=== PATIENT | female | born 2000 | race American Indian/Alaskan Native ===

== ENCOUNTER 2019-07-16 00:29 | Emergency (ER) | payer OTHER, BC ==
[2019-07-16 01:09] VITALS: BMI 21.7
--- NOTE | 2019-07-16 01:28 | PDOC ---
History of Present Illness - General Chief Complaint: Injury Stated Complaint: LEFT FOOT PAIN,FALL History Source: Patient Exam Limitations: No Limitations - History of Present Illness Initial Comments: 07/16/19 01:20 Patient is a 19-year-old female with no past medical history here with complaints of left foot and ankle pain since a few hours ago. Patient states that she was walking and fell into a pothole, fell, causing injury to her foot and ankle now with inability to apply pressure on the foot. Pain she states it is 10/10 with ambulation but if sitting still has no pain. There was no other injury with the fall. PMD: Dr. Rosales PMHX: neg PSOCHX: neg etoh, neg drug, neg cig ALL: NKDA GENERAL/CONSTITUTIONAL: [No fever or chills. No weakness. No weight change.] HEAD, EYES, EARS, NOSE AND THROAT: [No change in vision. No ear pain or discharge. No sore throat.] RESPIRATORY: [No cough, wheezing, or hemoptysis.] MUSCULOSKELETAL: [(+) joint or muscle swelling or pain. No neck or back pain.] SKIN AND BREASTS: [No rash or easy bruising.] NEUROLOGIC: [No headache, vertigo, loss of consciousness, or loss of sensation.] ALLERGIC/IMMUNOLOGIC: [No hives or skin allergy. No latex allergy.] GENERAL: [The patient is awake, alert, and fully oriented, in no acute distress. ] HEAD: [Normal with no signs of trauma.] EYES: [Pupils equal, round and reactive to light, extraocular movements intact, sclera anicteric, conjunctiva clear.] EXTREMITIES: [Normal range of motion, (+)swelling to the left foot latteral and ankle (+) tenderness most over the 5th MT. No clubbing or cyanosis. No cords, erythema, or tenderness.] NEUROLOGICAL: [Cranial nerves II through XII grossly intact. Normal speech, nonambulatary due to pain.] SKIN: [Warm, Dry, normal turgor, no rashes or lesions noted, (+) swelling to the left foot.] Past History - Past Medical History Allergies/Adverse Reactions: Allergies Allergy/AdvReac Type Severity Reaction Status Date / Time No Known Allergies Allergy Verified 07/16/19 00:43 Home Medications: Ambulatory Orders NK [No Known Home Medication] 07/16/19 COPD: No - Immunization History Immunization Up to Date: Yes - Psycho Social/Smoking Cessation Hx Smoking History: Never smoked Information on smoking cessation initiated: No Hx Alcohol Use: No Drug/Substance Use Hx: No *Physical Exam - Vital Signs Last Vital Signs Temp Pulse Resp BP Pulse Ox 98.6 F 97 H 15 103/70 99 07/16/19 00:31 07/16/19 00:31 07/16/19 00:31 07/16/19 00:31 07/16/19 00:31 Procedures - Splinting Splint Location: Right: Foot Hand-Made Type: orthoglass Splint Type: Yes: Posterior, Short Leg Post-Proc Neuro Vasc Exam: normal Armando Bandage: 6" Complications: No ED Treatment Course - RADIOLOGY Radiology Studies Ordered: Category Date Time Status ANKLE & FOOT-LEFT* [RAD] Stat Radiology 07/16/19 01:16 Ordered Medical Decision Making - Medical Decision Making 07/16/19 01:20 Patient is a 19-year-old female with no past medical history here with complaints of left foot and ankle pain since a few hours ago. Patient states that she was walking and fell into a pothole, fell, causing injury to her foot and ankle now with inability to apply pressure on the foot. Pain she states it is 10/10 with ambulation but if sitting still has no pain. There was no other injury with the fall. 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 07/16/19 02:48 At the verge of discharge patient c/o of the right foot in pain from the injury xray of right foot order, no fx noted. I discussed the physical exam findings, ancillary test results and final diagnoses with the patient. I answered all of the patient's questions. The patient was satisfied with the care received and felt comfortable with the discharge plan and treatment plan. The Patient agrees to follow up with the primary care physician within 24-72 hours. Discharge - Discharge Information Problems reviewed: Yes Clinical Impression/Diagnosis: Fracture of base of fifth metatarsal bone Qualifiers: Encounter type: initial encounter Fracture type: closed Laterality: left Qualified Code(s): S92.352A - Displaced fracture of fifth metatarsal bone, left foot, initial encounter for closed fracture Condition: Stable Disposition: HOME - Follow up/Referral Referrals: Marlene Rosales MD [Primary Care Provider] - Chidi Grady MD [Staff Physician] - - Patient Discharge Instructions Patient Printed Discharge Instructions: DI for November Stress Fracture Additional Instructions: Your Discharge Instructions: You must call primary care physician within 24 hours to arrange follow-up. Return to the Emergency Department with any new, persistent or worsening symptoms, for fever, chills, SOB, dizziness or any other concerning changes that may occur. You must follow-up with orthopedist or podiatry. You must be nonweight weightbearing on the left foot. Use crutches until seen by orthopedics Ice and elevate. Motrin for pain as needed. - Post Discharge Activity
[2019-07-16 03:17] VITALS: BP 100/61; PULSE 67; TEMP 99
== END 2019-07-16 03:19 | disposition home or self-care (01) ==
LOC: JER 00:29
PROC: 2W3RX1Z Immobilization of Left Lower Leg using Splint (ICD-10-PCS; principal; 2019-07-16)
DX: S92.352A Displaced fracture of fifth metatarsal bone, left foot, initial encounter for closed fracture (principal); W17.2XXA Fall into hole, initial encounter; Y93.01 Activity, walking, marching and hiking; Y92.488 Other paved roadways as the place of occurrence of the external cause; Y99.8 Other external cause status
CPT/HCPCS: 73630-TC-LT; 73630-TC-RT-FY; 99282-25